=== PATIENT | male | born 1990 | race Two or more races ===

== ENCOUNTER 2017-10-11 09:23 | Emergency (ER) | payer OTHER ==
[~2017-10-11] VITALS: Ht 172.7 cm; Wt 90.7 kg
[~2017-10-11 09:23] MED LIST: CITALOPRAM HBR40 MG PO; GABAPENTIN400 MG PO; LATUDA60 MG PO; NEURONTIN400 MG PO; OMEPRAZOLE40 MG PO; PROMETHAZINE HC25 M1 PO; TRAZODONE HCL100 MG PO
== END 2017-10-11 10:03 | disposition home or self-care (01) ==
LOC: ED 09:23
PROC: 0HQEXZZ Repair Left Lower Arm Skin, External Approach (ICD-10-PCS; principal; 2017-10-11)
DX: S51.812A Laceration without foreign body of left forearm, initial encounter (principal); F31.9 Bipolar disorder, unspecified; Z79.899 Other long term (current) drug therapy; Y33.XXXA Other specified events, undetermined intent, initial encounter
CPT/HCPCS: 12002; 90471; 90714; 99283

== ENCOUNTER 2017-12-29 06:05 | Day surgery (SDC) | payer OTHER ==
[~2017-12-29] VITALS: Ht 172.7 cm; Wt 93.4 kg
--- NOTE | 2017-12-29 08:38 | NUR ---
12/29/17 0838 JakySophie LE 0744: PT ARRIVED TO PACU VIA STRETCHER WITH RN AND BUGGY RUNNER. AIRWAY SUPPORTED. PT VISIBLE APNIC AT TIMES. 02 VIA NC AT 4 L. PT SUCTIONED VIA BUGGY RUNNER FOR EXCESS SECREATIONS. PT NONAROUSABLE. LE 0750: AIRWAY SUPPORT VIA SB RN, 02 VIA NC AT 4 L. PT STILL VISIBLY APNIC AT TIME, SNORING. PT COUGHING HARD. ATTEMPTS TO SUCTION, DIFFICULT PT IS CLENCHING JAW. PT SLIGHTLY AROUSABLE TO STIMULI. LE 0800: PT SLOWLY WAKING. AIRWAY MAINTAINED ON OWN. 02 ON RA SATS 96%. PT AROUSABLE TO VOICE, COMMUNICATING WITH MINIMAL PHRASES. LE 0815: PT AWAKE, ASKING TO GO HOME. VITALS SIGNS STABLE. SATS 98% ON RA. IV DC'D. PT SITTING AT BEDSIDE, DRESSING SELF WITH NO ASSIST. FOSTER FATHER IN PACU. DISCHARGE INSTRUCTIONS GIVEN. PT AMBULATED TO .
--- NOTE | 2018-01-05 06:10 | OR ---
[facility] [address], [place] [address] Signed DATE OF OPERATION: 12/29/2017 SURGEON: Kimo Celaya MD PREOPERATIVE DIAGNOSES: 1. Gastroesophageal reflux disease. 2. Hiatal hernia. POSTOPERATIVE DIAGNOSES: 1. Hiatal hernia (38 cm -- 34 cm). 2. Mild patchy gastritis. 3. 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 PROCEDURE: Esophagogastroduodenoscopy with CLOtest and biopsies of the antrum and gastroesophageal junction. ESTIMATED BLOOD LOSS: None. INDICATIONS: Corey is a 27-year-old gentleman with bipolar disorder. He resides with his foster parents. He is very pleasant and very cooperative. He maintains moderate insight into his own health issues. He has had trouble with acid reflux for at least a couple of years. He said it is worse when he lies supine. A standard barium enema showed what looks like a small hiatal hernia with reflux during the test. He said with omeprazole he does fine. Without the omeprazole, he said he is miserable. There is some concern that given his young age, he might consider surgery as an alternative to his omeprazole. Consequently, he was asked to see me for upper endoscopy. I met with Jackson and his family in the office. I gave him a booklet on acid reflux and hiatal hernias. We also reviewed upper endoscopy together. He understands the need for IV conscious sedation given his daily need for citalopram and bupropion and trazodone. We asked that an anesthesia provider help us with increased monitoring and sedation with propofol. They had expressed understanding and wished to proceed. DESCRIPTION OF PROCEDURE: Corey was taken into our endoscopy suite and placed in the supine semi-recumbent position. The posterior oropharynx was anesthetized with Hurricaine spray. A bite block was utilized for the case. The adult gastroscope was introduced and advanced all the way out into the third portion of the duodenum under direct visualization of the Electronically Signed By: KIMO CELAYA MD 01/05/18 0610 PATIENT NAME: COREY PITTMAN OPERATIVE REPORT DATE OF : 89 REPORT #: [id number] PHYSICIAN: KIMO CELAYA MD PCP: BALTA SHANE DO REPORT IS CONFIDENTIAL AND NOT TO BE RELEASED WITHOUT AUTHORIZATION [facility] [address], [place] [address] Signed camera without difficulty. His duodenum and pyloric channel were unremarkable. The stomach showed some mild patchy erythematous changes. We took a biopsy of the antrum for CLOtest as well as pathologic review. Upon retroflexion of the scope, he clearly had a moderate sized hiatal hernia. The scope was withdrawn up through the area of the GE junction, which was compliant without stricture. The hiatal hernia measured out 38 cm from the incisura up to the what appears to be the GE junction in the top of the hiatal hernia. Consequently, the hiatal hernia was about 4 cm in length. He had moderately significant disruption to his Z-line. We took multiple biopsies in this area for pathologic review. The middle and upper esophagus were unremarkable. After this, the gas was suctioned out and the gastroscope removed. Corey tolerated the procedure quite well. RECOMMENDATIONS: I will see Corey back in my office in 7 to 14 days to review his results. Kimo Celaya MD ALB/MODL /[id number] cc: DO Kimo Chase MD Copies: BALTA SHANE ANDREW L MD ~ Electronically Signed By: KIMO CELAYA MD 01/05/18 0610 PATIENT NAME: COREY PITTMAN [facility] OPERATIVE REPORT DATE OF : [birth year] REPORT #: [id number] PHYSICIAN: KIMO CELAYA MD PCP: BALTA SHANE DO REPORT IS CONFIDENTIAL AND NOT TO BE RELEASED WITHOUT AUTHORIZATION
== END 2017-12-29 08:29 | disposition home or self-care (01) ==
LOC: DS 06:05 → OPS 06:05 → DS 06:45
PROVIDERS: Colon & Rectal Surgery
PROC: 0DB78ZX Excision of Stomach, Pylorus, Via Natural or Artificial Opening Endoscopic, Diagnostic (ICD-10-PCS; 2017-12-29)
PROC: 0DB48ZX Excision of Esophagogastric Junction, Via Natural or Artificial Opening Endoscopic, Diagnostic (ICD-10-PCS; principal; 2017-12-29 06:45)
DX: K29.50 Unspecified chronic gastritis without bleeding (principal); K20.9 Esophagitis, unspecified; F17.210 Nicotine dependence, cigarettes, uncomplicated; K44.9 Diaphragmatic hernia without obstruction or gangrene; K59.00 Constipation, unspecified; F31.9 Bipolar disorder, unspecified; J45.909 Unspecified asthma, uncomplicated; F41.9 Anxiety disorder, unspecified; G47.30 Sleep apnea, unspecified; I49.3 Ventricular premature depolarization; Z90.89 Acquired absence of other organs; Z98.890 Other specified postprocedural states; Z79.899 Other long term (current) drug therapy
CPT/HCPCS: 86677; 88305; J2250; J2704; J3010; J7120